=== PATIENT | female | born 1975 ===

== ENCOUNTER → 2020-12-19 | Outpatient (CLI) | payer MEDICAID ==
[~2020-12-19] MED LIST: ASCO100018 PO; CHOL10003 PO; MULT-672 PO; OMEG1CAP39 PO
[2020-12-19 10:01] LABS: BASOPHILS % (AUTO) 1 % (0-1); EOSINOPHILS % (AUTO) 0 % (1-7); LYMPHOCYTES % (AUTO) 33 % (22-44); MEAN CORPUSCULAR HEMOGLOBIN 31.8 pg (27.0-34.8); MEAN CORPUSCULAR HGB CONC 33.8 g/dL (32.4-35.8); MEAN PLATELET VOLUME 7.8 fL (7.4-10.4); MONOCYTES % (AUTO) 7 % (2-9); NEUTROPHILS % (AUTO) 59 % (42-75); PLATELET COUNT 236 x10^3/uL (130-400); RED BLOOD COUNT 4.44 x10^6/uL (3.82-5.3); RED CELL DISTRIBUTION WIDTH 12.7 % (9.6-15.2)
[2020-12-19 10:04] LABS: MD NO
[2020-12-19 10:09] LABS: ALANINE AMINOTRANSFERASE 21 U/L (12-78); ALBUMIN 4.1 g/dL (3.4-5.0); ANION GAP 4 mmol/L (5-15); CALCIUM 9.7 mg/dL (8.5-10.1); CHLORIDE 104 mmol/L (98-107); CREATININE 0.91 mg/dL (0.55-1.02); INTERNATIONAL NORMALIZED RATIO 1.04 (0.93-1.1); PROTHROMBIN TIME 11.1 Seconds (9.6-11.5)
[2020-12-19 10:13] LABS: ALKALINE PHOSPHATASE 55 U/L (45-117); TOTAL PROTEIN 7.8 g/dL (6.4-8.2)
== END | disposition home or self-care (01) ==
LOC: STAR 09:04
PROVIDERS: ATTEND Family Medicine
DX: Z01.818 Encounter for other preprocedural examination (principal); N83.291 Other ovarian cyst, right side; N83.292 Other ovarian cyst, left side; N92.1 Excessive and frequent menstruation with irregular cycle; R10.2 Pelvic and perineal pain; Z20.822 Contact with and (suspected) exposure to COVID-19
CPT/HCPCS: 36415; 71046; 80053; 84703; 85025; 85610; 85730; 86304; 93005; U0003

== ENCOUNTER 2020-12-24 08:49 | Day surgery (SDC) | payer MEDICAID ==
[~2020-12-24] VITALS: Ht 160 cm; Wt 64.0 kg
[~2020-12-24 08:49] MED LIST changes: +EPHEDRINE 50 MG/ML, 1ML IVPush PRN; +FENTANYL PF 100 MCG/2ML IV PRN; +HYDROmorphone 1 MG/ML, 1ML INJ IVPush PRN; +LABETALOL 5MG/ML, 20ML IV PRN; +ONDANSETRON 2MG/ML, 2ML IVPush PRN; +OXYcodone 5 MG/5 ML ORAL.SOL UDC PO PRN; +PROMETHAZINE 25 MG/ML, 1ML IVPush PRN; +hydrALAzine 20 MG/ML, 1ML IV PRN
[2020-12-24 09:16] VITALS: BP 126/73
[2020-12-24] MEDS ORDERED: CHLORHEXIDINE 15 ML UDC ONE (09:19)
[2020-12-24] MEDS ORDERED: LACTATED RINGERS 1,000 ML IV SCH (09:30)
[2020-12-24] MEDS ORDERED: CHLORHEXIDINE 15 ML UDC PO ONE (09:30)
[2020-12-24] MEDS ORDERED: CEFOTETAN PMX 2GM/50ML 50 ML IVPB ONE (09:30)
[2020-12-24 09:45] LABS: HCG UR SG 1.026 (1.003-1.030)
[2020-12-24] MEDS ORDERED: SILVER NITRATE STICK TP ONE (09:50)
[2020-12-24] MEDS ORDERED: ACETAMINOPHEN 500 MG TABLET PO ONE (10:00)
[2020-12-24] MEDS ORDERED: BUPIVACAINE/PF-EPI 0.25% 1:200K ONE (10:37)
[2020-12-24] MEDS ORDERED: MIDAZOLAM 1 MG/ML, 2ML ONE (10:42)
[2020-12-24] MEDS ORDERED: FENTANYL PF 250 MCG/5ML ONE (10:44)
[2020-12-24] MEDS ORDERED: DIPHENHYDRAMINE 50 MG/ML, 1ML ONE ×2 (10:59→11:25)
[2020-12-24] MEDS ORDERED: KETOROLAC 30 MG/1 ML ONE (11:02)
[2020-12-24] MEDS ORDERED: SUGAMMADEX 200 MG/2 ML IVPush ONE (11:02)
[2020-12-24] MEDS ORDERED: ROCURONIUM 10MG/ML,5ML ONE (11:03)
[2020-12-24] MEDS ORDERED: PROPOFOL 10 MG/ML, 20ML ONE (11:03)
[2020-12-24] MEDS ORDERED: ONDANSETRON 2MG/ML, 2ML ONE (11:03)
[2020-12-24] MEDS ORDERED: SUCCINYLCHOLINE 20 MG/ML, 10ML ONE (11:03)
[2020-12-24] MEDS ORDERED: DEXAMETHASONE 4 MG/ML, 1ML ONE (11:03)
[2020-12-24] MEDS ORDERED: HYDROmorphone 1 MG/ML, 1ML INJ ONE (13:47)
[2020-12-24] MEDS ORDERED: MEPERIDINE/PF 25MG/ML,1ML ONE (14:19)
[2020-12-24] MEDS ORDERED: MEPERIDINE/PF 25MG/0.5ML IVPush PRN (14:30)
[2020-12-24] MEDS ORDERED: HEPARIN 1,000 UNITS/ML, 10ML ONE (15:48)
== END 2020-12-24 17:00 | disposition home or self-care (01) ==
LOC: OUT 08:49
PROVIDERS: ATTEND Specialist
DX: N92.1 Excessive and frequent menstruation with irregular cycle (principal); D39.12 Neoplasm of uncertain behavior of left ovary; R19.00 Intra-abdominal and pelvic swelling, mass and lump, unspecified site; Z88.1 Allergy status to other antibiotic agents; Z88.8 Allergy status to other drugs, medicaments and biological substances; Z79.899 Other long term (current) drug therapy; Z98.890 Other specified postprocedural states
CPT/HCPCS: 36415; 38573; 74018; 81025; 82397; 86336; 86850; 86900; 86923; 88112; 88305; 88307; 88309; J0330; J1100; J1170; J1200; J1644; J1885; J2175; J2250; J2405; J2704; J3010; J7120; S2900